=== PATIENT | female | born 1930 | race Caucasian/White ===

== ENCOUNTER 2016-07-20 14:04 | Inpatient (IN) ==
--- NOTE | 2016-07-20 14:29 | Emergency Department Note ---
Disposition Clinical Impression: Atrial fibrillation with RVR Disposition: Admitted As Inpatient Condition: Fair Forms: ED Satisfaction Letter Time of Disposition: 15:24 Arrhythmia/Palpitations HPI - General Chief Complaint: ED Recheck/Abnormal Lab/Rx Stated Complaint: High heart rate hx of a-fib Time Seen by Provider: 07/20/16 14:22 Source: patient Limitations: no limitations Nursing Notes Reviewed: Yes Vital Signs Reviewed: Yes - History of Present Illness HPI Narrative: 86-year-old who states she hasn't felt well for the last couple of days just feels generally weak and was at pain management had a steroid injection in her back and he noticed her heart rate was high so they sent her here the patient does have a history of atrial fibrillation she is not on a blood thinner he has had a Cardizem in the past. 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 Duration: constant Severity: moderate Context: occurred during rest Arrhythmia History: atrial fibrillation Associated symptoms: Reports: denies other symptoms - Related Data Home Medications Medication Instructions Recorded Confirmed Alendronate Sodium/Vitamin D3 1 tab PO HOWARD 02/24/15 04/20/16 [Fosamax Plus D 70 mg-5,600 Iu] Furosemide [Lasix] 40 mg PO BID PRN 02/24/15 04/20/16 Pantoprazole Sodium [Protonix] 40 mg PO QPM 02/24/15 04/20/16 Ergocalciferol (VITAMIN D2) 50,000 unit PO SA 03/13/15 04/20/16 [Drisdol (50,000 Unit)] Diltiazem HCl [Diltiazem ER] 120 mg PO BID 08/06/15 04/20/16 Calcitrate 950 mg PO BID 10/28/15 04/20/16 Propafenone HCl [Propafenone HCl 325 mg PO BID 10/28/15 04/20/16 ER] Previous Rx's Medication Instructions Recorded Apixaban [Eliquis] 2.5 mg PO DAILY #30 tablet 10/31/15 Oxycodone HCl/Acetaminophen 1 each PO Q6H #15 tablet 10/31/15 [Percocet 5-325 mg Tablet] Allergies Allergy/AdvReac Type Severity Reaction Status Date / Time codeine AdvReac Confusion Verified 07/20/16 14:08 Constitutional: Denies: fever, chills, weakness, weight change Eyes: Denies: eye pain, eye discharge, vision change ENT ED: Denies: ear pain, throat pain, dental pain, hearing loss, epistaxis, congestion, dysphagia Cardiovascular: Reports: palpitations. Denies: chest pain, dyspnea on exertion , edema, syncope Respiratory: Denies: cough, dyspnea, wheezes, hemoptysis, stridor Gastrointestinal: Denies: abdominal pain, nausea, vomiting, diarrhea, constipation, hematemesis, melena, hematochezia Genitourinary: Denies: dysuria, frequency, hematuria, discharge Musculoskeletal: Denies: back pain, neck pain, arthralgia, myalgia Integumentary: Denies: rash, abrasion, lesions Neurological: Reports: weakness (Generalized). Denies: headache, numbness, paresthesias, confusion, abnormal gait, vertigo Psychiatric: Denies: anxiety, depression, suicidal thoughts, homicidal thoughts , auditory hallucinations, visual hallucinations Endocrine: Denies: fatigue Hematological/Lymphatic: Denies: easy bleeding, easy bruising Allergic/Immunologic: Denies: facial swelling, urticaria Past Medical History - Past Medical History Medical history: Reports: arthritis, atrial fibrillation, COPD, GERD, hyperlipidemia, hypertension, malignancy, osteoporosis, other Surgical history: Reports: breast surgery, cancer surgery, orthopedic, other, ELYSIA/BSO, other Psychiatric history: Reports: no psych history 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: Reports: 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 - Social History Smoking Status: Never smoker Smokeless Tobacco Status: No Alcohol use: Reports: rarely Drug use: Reports: none Physical Exam - General Limitations: no limitations General appearance: alert, in no apparent distress - Head Head exam: atraumatic, normocephalic, normal inspection - Eye Eye exam: Present: normal appearance, PERRL, EOMI - ENT ENT exam: normal exam, normal oropharynx, mucous membranes moist - Neck Neck exam: Present: normal inspection, full ROM, trachea midline - Chest Chest inspection: Present: normal inspection, symmetric chest wall rise - Respiratory Respiratory exam: Present: normal lung sounds bilaterally - Cardiovascular Cardiovascular exam: Present: tachycardia, irregular rhythm, normal heart sounds - Abdominal Exam Abdominal exam: Present: soft, Non-Tender. Absent: tenderness, distention, guarding, rebound, rigidity - Expanded Lower Extremity Exam Neurovascular/Tendon exam: Absent: motor deficit, sensory deficit, tendon deficit Gait: observed and normal - Back Exam Back exam: Present: normal inspection, full ROM. Absent: tenderness - Neurological Exam Neurological exam: Present: alert, oriented X3. Absent: motor sensory deficit - Psychiatric Psychiatric exam: Present: normal affect, normal mood - Skin Skin exam: Present: warm, dry, intact, normal color Course - Reevaluation(s) Reevaluation #1: Computer system indicates the patient is on a blood thinner Elliquis, however the patient and family states she is not on it she stopped it and has not been taking it. Time: 14:50 Reevaluation #2: Patient was started on amiodarone heart rates come down from 150s to 160s down to 110 to 115. Blood pressure has remained in the mid 100s systolic. She remains asymptomatic. Time: 15:45 - Consultations Consultation #1: Consultation with Dr. Bustamante cardiology he recommends amiodarone drip without a bolus fluid bolus. Time: 14:43 Consultation #2: Discussed with , nicanor. Time: 15:31 Vital Signs Temperature 98.4 F 07/20/16 14:08 Pulse Rate 151 07/20/16 14:08 Respiratory Rate 18 07/20/16 14:08 Blood Pressure 73/48 07/20/16 14:08 O2 Sat by Pulse Oximetry 98 07/20/16 14:08 Temperature 98.4 F 07/20/16 14:08 Pulse Rate 146 07/20/16 15:30 Respiratory Rate 16 07/20/16 15:30 Blood Pressure 116/96 07/20/16 15:30 O2 Sat by Pulse Oximetry 96 07/20/16 15:30 Oxygen Delivery Oxygen Delivery Room Air Arrhythmia/Palpitations - Lab Data Lab results reviewed: Yes I reviewed the patient's lab results. Result diagrams: 07/20/16 14:30 07/20/16 14:30 Lab Results 07/20/16 07/20/16 07/20/16 Range/Units 14:30 14:30 14:30 WBC 8.8 (4.3-11.1) K/mcL RBC 3.41 L (3.82-4.97) M/mcL Hgb 10.9 L (11.5-15.4) g/dL Hct 33.4 L (35.3-44.9) % MCV 97.9 (83.0-100.0) fL MCH 32.0 (28.0-33.3) pg MCHC 32.6 (31.6-35.5) g/dL RDW 14.6 H (11.5-14.5) % Plt Count 238 (140-400) K/mcL MPV 9.8 (9.4-12.4) fL Immature Gran % 0.3 (0-4) % Seg Neutrophils % 62.8 % Lymphocytes % 26.7 % Monocytes % 9.2 % Eosinophils % 0.8 % Basophils % 0.2 % Neutrophils # 5.5 (1.6-8.9) K/mcL Lymphocytes # 2.4 (0.6-4.6) K/mcL Monocytes # 0.8 (0.0-1.3) K/mcL Eosinophils # 0.1 (0.0-0.6) K/mcL Basophils # 0.0 (0.0-0.2) K/mcL PT 11.3 (9.4-12.1) Seconds INR 1.0 APTT 27.5 (26.0-36.0) Seconds Sodium 137 (136-145) mEq/L Potassium 4.0 (3.5-4.5) mEq/L Chloride 103 (98-109) mEq/L Carbon Dioxide 25 (19-29) mEq/L BUN 30 H (7-20) mg/dL Creatinine 2.07 H (0.57-1.11) mg/dL Est GFR ( Amer) 27 L (> 60) Est GFR (Non-Af Amer) 23 L (> 60) BUN/Creatinine Ratio 14 (6-26) Glucose 97 (70-99) mg/dL Calculated Osmolality 290 (280-300) Calcium 9.8 (8.6-10.8) mg/dL Troponin I (0-0.03) ng/mL TSH 1.969 (0.350-4.840) mcIU/mL 07/20/16 Range/Units 14:30 WBC (4.3-11.1) K/mcL RBC (3.82-4.97) M/mcL Hgb (11.5-15.4) g/dL Hct (35.3-44.9) % MCV (83.0-100.0) fL MCH (28.0-33.3) pg MCHC (31.6-35.5) g/dL RDW (11.5-14.5) % Plt Count (140-400) K/mcL MPV (9.4-12.4) fL Immature Gran % (0-4) % Seg Neutrophils % % Lymphocytes % % Monocytes % % Eosinophils % % Basophils % % Neutrophils # (1.6-8.9) K/mcL Lymphocytes # (0.6-4.6) K/mcL Monocytes # (0.0-1.3) K/mcL Eosinophils # (0.0-0.6) K/mcL Basophils # (0.0-0.2) K/mcL PT (9.4-12.1) Seconds INR APTT (26.0-36.0) Seconds Sodium (136-145) mEq/L Potassium (3.5-4.5) mEq/L Chloride (98-109) mEq/L Carbon Dioxide (19-29) mEq/L BUN (7-20) mg/dL Creatinine (0.57-1.11) mg/dL Est GFR ( Amer) (> 60) Est GFR (Non-Af Amer) (> 60) BUN/Creatinine Ratio (6-26) Glucose (70-99) mg/dL Calculated Osmolality (280-300) Calcium (8.6-10.8) mg/dL Troponin I 0.00 (0-0.03) ng/mL TSH (0.350-4.840) mcIU/mL - Radiology Data Radiology results reviewed: Yes I reviewed the patient's radiology results. Chest X-Ray 07/20/16 14:23 IMPRESSION: No acute abnormality. D/ / Gilbert Sethi MD / Gilbert Sethi MD Interpreting Provider: Gilbert Sethi MD - EKG Data EKG attestation: Yes I reviewed and interpreted this EKG. Rate: tachycardia Rhythm: A.Fib [place]/QRS: IVCD Interpretation: no acute changes Critical Care Time Critical Care Time: Yes Total Critical Care Time: 30 Attestation: The high probability of a clinically significant, sudden or life threatening deterioration of the [cardiovascular] system(s) required my full and direct attention, intervention and personal management. The aggregate critical care time was [30] minutes. This time is in addition to time spent performing reported procedures but includes the following: [x] Data Review and interpretation [x] Patient assessment and monitoring of vital signs [x] Documentation [x] Medication orders and management
[2016-07-20 14:36] LABS: Basophils % 0.2 %; Eosinophils # 0.1 K/mcL (0.0-0.6); Eosinophils % 0.8 %; Hematocrit 33.4 % (35.3-44.9); Hemoglobin 10.9 g/dL (11.5-15.4); Immature Granulocytes % 0.3 % (0-4); Lymphocytes # 2.4 K/mcL (0.6-4.6); Lymphocytes % 26.7 %; Mean Corpuscular HGB Conc 32.6 g/dL (31.6-35.5); Mean Corpuscular Volume 97.9 fL (83.0-100.0); Mean Platelet Volume 9.8 fL (9.4-12.4); Monocytes # 0.8 K/mcL (0.0-1.3); Monocytes % 9.2 %; Neutrophils # 5.5 K/mcL (1.6-8.9); Platelet Count 238 K/mcL (140-400); Red Blood Count 3.41 M/mcL (3.82-4.97); Red Cell Distribution Width 14.6 % (11.5-14.5); Segmented Neutrophils % 62.8 %
[2016-07-20 14:41] LABS: Prothrombin Time 11.3 Seconds (9.4-12.1)
[2016-07-20 14:43] LABS: Activated Partial Thrombo Time 27.5 Seconds (26.0-36.0)
[2016-07-20] MEDS ORDERED: Amiodarone Premix 360 MG/200 ML BAG IVC ONE (14:44)
[2016-07-20] MEDS ORDERED: *HR* Heparin 5,000 UNIT/ML VIAL IVP PRN ×2 (14:47)
[2016-07-20] MEDS ORDERED: *HR* Heparin 5,000 UNIT/ML VIAL IVP ONE (14:47)
[2016-07-20 14:49] LABS: Calcium 9.8 mg/dL (8.6-10.8)
[2016-07-20] MEDS ORDERED: Heparin 25,000 UNIT/500 ML D5W 25,000 UNIT/500 ML MLS IVC SCH (15:00)
[2016-07-20 15:10] LABS: Thyroid Stimulating Hormone 1.969 mcIU/mL (0.350-4.840)
[2016-07-20] MEDS ORDERED: Naloxone 0.4 MG/ML INJ IVP PRN (16:51)
[2016-07-20] MEDS ORDERED: Benzonatate 100 MG CAPSULE PO PRN (16:52)
--- NOTE | 2016-07-20 17:02 | Internal Med History&Physical ---
Date of Encounter: 07/20/16 Time of Encounter: 16:30 Assessment and Plan (1) Atrial fibrillation with RVR Current visit: Yes Status: Acute Patient presented with A. fib with RVR and low blood pressure. As such she was started on amiodarone. As per Cardiology recommendations, she was also placed on heparin. We will continue these medications. High risk for complications due to use of intravenous amiodarone and IV heparin. (2) CKD stage G3b/A2, GFR 30-44 and albumin creatinine ratio 30-299 mg/g Current visit: Yes Status: Chronic creatinine is worse than baseline. We will gently hydrate and follow renal function closely. (3) Hypertension Current visit: Yes Status: Chronic well controlled. Continue home medications and monitor blood pressure closely. Qualifiers: Hypertension type: essential hypertension Qualified Code(s): I10 - Essential (primary) hypertension (4) Multilevel degenerative disc disease Current visit: No Status: Chronic Status post spinal epidural steroid injection. Supportive care. Pain control. Internal Medicine - H&P: HPI Chief complaint: Fatigue, tiredness, Admitted From: Emergency Dept Plans for Post Hospital Care: Home History of present illness: Ms. Rodriguez is a 86 year old female patient with history of atrial fibrillation currently not on anticoagulation who presented to the ER after undergoing a spinal epidural steroid injection with rapid A. fib. She does not recollect any abnormality before undergoing the procedure but was found to be tachycardic during the procedure. She also began to have some fatigue and dizziness and was feeling tired soon after. She denies any chest pain. She denies palpitations at this time. She has A. fib and this is paroxysmal and she has had this for about 5 years now. She was previously on anticoagulation with adequate but this was stopped. Denies any fever chills or night sweats. No cough or sputum production. No nausea or vomiting. No syncope Past Med Surg Social Fam HX - Past Medical History Attestation: Yes The following information was validated with the patient. Source: patient, old records reviewed Medical history: arthritis, atrial fibrillation, COPD, GERD, hyperlipidemia, hypertension, malignancy, osteoporosis, other Psychiatric history: no psych history - Past Surgical History Surgical History: breast surgery, cancer surgery, orthopedic, other, ELYSIA/BSO, other - Social History Smoking Status: Never smoker Smokeless Tobacco Status: No Alcohol use: rarely Drug use: none Internal Medicine - H&P: Meds Furosemide [Lasix] 40 mg PO DAILY 02/24/15 [History] Pantoprazole Sodium [Protonix] 40 mg PO QPM 02/24/15 [History] Ergocalciferol (VITAMIN D2) [Drisdol (50,000 Unit)] 50,000 unit PO SA 03/13/15 [ History] Diltiazem HCl [Diltiazem ER] 120 mg PO BID 08/06/15 [History] Propafenone HCl [Propafenone HCl ER] 325 mg PO BID 10/28/15 [History] Alendronate Sodium [Fosamax] 70 mg PO HOWARD 07/20/16 [History] Amoxicillin [Amoxicillin] 875 mg PO BID 07/20/16 [History] Benzonatate [Tessalon] 100 mg PO TID PRN 07/20/16 [History] Calcium Crb,Cit/D3/Min34/Chema [Citracal + Bone Density Tablet] 1 each PO BID [History] Cyclosporine [Restasis Multidose] 1 drop OP BID 07/20/16 [History] Loratadine [Claritin] 10 mg PO DAILY 07/20/16 [History] OxyCODONE Immed Rel [Roxicodone 5 MG] 5 mg PO Q6H 07/20/16 [History] Allergies codeine Adverse Reaction (Verified 07/20/16 14:08) Confusion All Systems PM: A 10-system review of systems was performed and is negative for pertinent findings except as documented above in the HPI. - Constitutional Constitutional: no chills, no fever(s), no night sweats - EENT Eyes: no change in vision, no discharge, no pain, no photophobia Ears: no ear discharge, no ear pain, no tinnitus Nose, mouth and throat: no dysphagia, no nasal discharge, no neck pain, no sore throat - Cardiovascular Cardiovascular ROS IM: lightheadedness, no chest pain, no diaphoresis, no dyspnea, no palpitations, no syncope - Respiratory Respiratory: no cough, no dyspnea, no wheezing, no excessive phlegm production - Gastrointestinal Gastrointestinal: no abdominal pain, no diarrhea, no hematemesis, no hematochezia, no melena, no nausea, no vomiting - Genitourinary Genitourinary: no change in urinary stream, no dysuria, no flank pain, no hematuria - Musculoskeletal Musculoskeletal ROS IM: no numbness, no tingling - Integumentary Integumentary IM: no rash, no unusual bruising - Neurological Neurological ROS: no confusion, no convulsions, no focal weakness, no numbness, no tingling, no tremor(s) - Hematologic/Lymphatic Hematologic/Lymphatic: no easy bruising - Constitutional Vitals: Temp Pulse Resp BP Pulse Ox 98.4 F 97 18 124/77 97 07/20/16 14:08 07/20/16 16:07 07/20/16 16:53 07/20/16 16:53 07/20/16 16:07 General appearance: Present: cooperative, mild distress, A&O X 3, answers questions appropriately - Neck Neck exam general surgery: Present: supple, trachea midline. Absent: lymphadenopathy - Respiratory Respiratory exam: Present: CTAB. Absent: accessory muscle use, rales, rhonchi, wheezes - Cardiovascular Cardiovascular exam: Present: irregular rhythm, +S1, +S2, tachycardia. Absent: diastolic murmur, gallop, rubs, systolic murmur - GI/Abdominal GI/Abdominal exam: Present: normal bowel sounds, soft, no peritoneal signs. Absent: distended, tenderness - Extremities Exam Extremities exam: Present: warm, radial pulses palpable and symetrical. Absent : calf tenderness, cyanotic, pedal edema - Neurological Exam Neurological exam: Present: alert, oriented X3, no focal deficits. Absent: facial droop, speech deficit - Skin Skin exam: Present: dry, intact Internal Med - H&P Results - Labs CBC & Chem 7: 07/20/16 14:30 07/20/16 14:30 - EKG Data -: EKG Interpreted by Myself - EKG Data EKG comments: 07/20/16 17:10 A. fib with RVR - Attending Attestation This document has been at least partially created by [employer] recognition technology by Dr. Forbes. Errors in grammar, wording or other phrases may exist. If errors are found after the documentation is signed, they will be addressed individually in the addendum section of this document when appropriate.
[2016-07-20] MEDS ORDERED: PROPAFENONE HCL 325 MG PO SCH (21:00)
[2016-07-20] MEDS: Amiodarone Premix 360 MG/200 ML BAG IVC SCH (21:37)
[2016-07-20] MEDS: Diltiazem SR (12hr) 60 MG CAPSULE PO SCH (21:46)
[2016-07-21] MEDS: *HR* OxyCODONE Immed Rel 5 MG TABLET PO PRN ×4 (00:32→21:13)
[2016-07-21 03:35] LABS: Basophils % 0.2 %; Hematocrit 28.6 % (35.3-44.9); Hemoglobin 9.5 g/dL (11.5-15.4); Immature Granulocytes % 0.4 % (0-4); Lymphocytes # 1.5 K/mcL (0.6-4.6); Lymphocytes % 27.8 %; Mean Corpuscular HGB Conc 33.2 g/dL (31.6-35.5); Mean Corpuscular Hemoglobin 32.1 pg (28.0-33.3); Mean Corpuscular Volume 96.6 fL (83.0-100.0); Mean Platelet Volume 9.9 fL (9.4-12.4); Monocytes # 0.4 K/mcL (0.0-1.3); Monocytes % 7.5 %; Neutrophils # 3.5 K/mcL (1.6-8.9); Platelet Count 175 K/mcL (140-400); Red Blood Count 2.96 M/mcL (3.82-4.97); Red Cell Distribution Width 14.5 % (11.5-14.5); Segmented Neutrophils % 64.1 %
[2016-07-21 03:44] LABS: Potassium 4.1 mEq/L (3.5-4.5)
[2016-07-21] MEDS: Diltiazem SR (12hr) 60 MG CAPSULE PO SCH ×2 (08:00→21:13)
[2016-07-21] MEDS: Loratadine 10 MG TABLET PO SCH (08:00)
--- NOTE | 2016-07-21 08:10 | Cardiology Consult Note ---
Date of Encounter: 07/21/16 Time of Encounter: 08:10 Assessment and Plan (1) Paroxysmal a-fib Current Visit: No Status: Chronic Appears to be in paroxysmal A Flutter today during my exam. - DC amio drip, start oral amiodarone 400mg BID - Continue cardizem 120mg daily - DC propafenone. - [id number] of 4 - DC heparin drip, restart Eliquis 2.5mg BID. Discussion w patient/family: The assessment and plan as outlined above was discussed with the patient and/or family members who expressed understanding and agreement. All questions were answered. Thank you for involving us in the care of your patient. Please call with any questions. History of Present Illness Consult date: 07/20/16 Requesting physician: Manish Forbes Consult reason: A fib with RVR Chief complaint: weakness, rapid heart rate History of present illness: Ms. Rodriguez is a 86 year old female with a PMHx of paroxysmal Atrial fibrillation , COPD, GERD, HLD, HTN, CKD stage 3 who presented with a chief complaint of weakness for the last couple days. Pt was getting a spinal steroid injection when they noted her to be tachycardic and sent her to be seen in the ED. Pt was found to be in A fib with RVR with a rate of 147 bpm. patient was started on an amiodarone drip as well as heparin drip. Patient denies any shortness of breath or chest pain. Patient states she has been off her Eliquis for approximately one year now. States she thinks her primary care physician Dr. Ordonez has taken her off it. Patient has previously followed with dental technology advisor Dr. Rose/Nabor in [place] but has not seen them in over a year also. Last echocardiogram was done in September 2015 which showed LVEF 65%, mild LV basal septal hypertrophy, moderate LV diastolic dysfunction, severe left atrial dilation, mild dilation of the right atrium, mild mitral regurgitation, moderate pulmonary hypertension, RVSP 51. Past Med Surg Social Fam HX - Past Medical History Medical history: arthritis, atrial fibrillation, GERD, malignancy, osteoporosis , other Psychiatric history: no psych history - Past Surgical History Surgical History: breast surgery, cancer surgery, orthopedic, other, ELYSIA/BSO, other - Social History Smoking Status: Never smoker Smokeless Tobacco Status: No Alcohol use: rarely Drug use: none - Family History Mother Hx Family Neurologic Disorders: (tremors) Medications and Allergies Furosemide [Lasix] 40 mg PO DAILY 02/24/15 [History] Pantoprazole Sodium [Protonix] 40 mg PO QPM 02/24/15 [History] Ergocalciferol (VITAMIN D2) [Drisdol (50,000 Unit)] 50,000 unit PO SA 03/13/15 [ History] Diltiazem HCl [Diltiazem ER] 120 mg PO BID 08/06/15 [History] Propafenone HCl [Propafenone HCl ER] 325 mg PO BID 10/28/15 [History] Alendronate Sodium [Fosamax] 70 mg PO HOWARD 07/20/16 [History] Amoxicillin [Amoxicillin] 875 mg PO BID 07/20/16 [History] Benzonatate [Tessalon] 100 mg PO TID PRN 07/20/16 [History] Calcium Crb,Cit/D3/Min34/Chema [Citracal + Bone Density Tablet] 1 each PO BID [History] Cyclosporine [Restasis Multidose] 1 drop OP BID 07/20/16 [History] Loratadine [Claritin] 10 mg PO DAILY 07/20/16 [History] OxyCODONE Immed Rel [Roxicodone 5 MG] 5 mg PO Q6H 07/20/16 [History] Allergies codeine Adverse Reaction (Verified 07/20/16 14:08) Confusion All Systems Review: A 10-system review of systems was performed and is negative for pertinent findings except as documented above in the HPI. - Constitutional Constitutional: fatigue, weakness - EENT Eyes: no loss of vision Nose, mouth and throat: no dysphagia - Cardiovascular Cardiovascular: irregular heart rhythm, rapid heart rate, no chest pain at rest , no chest pain with exertion, no dyspnea at rest, no dyspnea on exertion, no palpitations - Respiratory Respiratory: no cough, no dyspnea - Gastrointestinal Gastrointestinal: no abdominal pain - Genitourinary Genitourinary: no dysuria - Musculoskeletal Musculoskeletal: back pain (chronic) - Integumentary Integumentary: no erythema, no rash - Neurological Neurological: no abnormal speech, no dizziness, no focal weakness Physical Examination General: Conversant, No Apparent Distress HEENT: Atraumatic, Mucus Membranes Moist Neck: No JVD, Normal carotid pulses Cardiac: No Murmur, Other (rate controlled a flutter) Lungs: Normal Breath Sounds, No Wheeze, Rales, Rhonchi Neuro: Alert and responsive, No focal deficits noted Abdomen: Soft, Non-Tender Skin: No rashes noted on visualized skin Musculoskeletal: No Chest Wall Tenderness Extremities: No Edema, Normal Pulses Results 07/21/16 03:23 07/21/16 03:23 Lab Results 07/20/16 07/20/16 07/21/16 21:29 22:26 03:23 WBC 5.5 Hgb 9.5 L Hct 28.6 L Plt Count 175 APTT 109.4 H D Sodium Potassium Chloride Carbon Dioxide BUN Creatinine Glucose Calcium Troponin I 0.02 07/21/16 07/21/16 07/21/16 03:23 03:23 07:38 WBC Hgb Hct Plt Count APTT 72.4 H Sodium 138 Potassium 4.1 Chloride 105 Carbon Dioxide 25 BUN 30 H Creatinine 1.65 H Glucose 106 H Calcium 9.0 Troponin I 0.01 - Imaging and Cardiology Chest Xray: report reviewed Echo: report reviewed - EKG Interpretation EKG results cardiology: personally reviewed (EKG done at 1440 shows atrial fibrillation with RVR with a rate of [address] depression present in 1, aVL , V3 through V6, normal axis. No ST elevation.) Consult Discharge Plan - Plan Referrals: Héctor Ordonez Jr, MD [Primary Care Provider] -
[2016-07-21] MEDS: Amiodarone Premix 360 MG/200 ML BAG IVC SCH (09:30)
[2016-07-21] MEDS: 0.9 % Sodium Chloride 1,000 ML IVC SCH ×2 (09:50→21:16)
--- NOTE | 2016-07-21 11:23 | Electrocardiograph Report ---
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
[2016-07-21] MEDS: *HR* Amiodarone 200 MG TABLET PO SCH ×2 (12:49→21:13)
[2016-07-21] MEDS: APIXABAN 5 MG TABLET PO SCH ×2 (12:49→21:12)
--- NOTE | 2016-07-21 15:22 | Internal Med Progress Note ---
Date of Encounter: 07/21/16 Time of Encounter: 14:30 - Assessment and plan (1) Atrial fibrillation with RVR Current Visit: Yes Status: Acute Assessment and plan: Recent inferior A. fib and flutter. Rate controlled currently while she was receiving amiodarone IV. Has now been changed to oral amiodarone. Propafenone has been discontinued. High chads vasc score. On IV heparin. Now transitioned to Eliquis. Moderate risk for complications. If patient's heart rate remains controlled tomorrow without any complications, she is likely to be discharged home. (2) CKD stage G3b/A2, GFR 30-44 and albumin creatinine ratio 30-299 mg/g Current Visit: Yes Status: Chronic Assessment and plan: creatinine 1.65 today. At baseline. (3) Hypertension Current Visit: Yes Status: Chronic Assessment and plan: Blood pressure is well controlled. Qualifiers: Hypertension type: essential hypertension Qualified Code(s): I10 - Essential (primary) hypertension (4) Multilevel degenerative disc disease Current Visit: No Status: Chronic Assessment and plan: Continue supportive care. Pain well controlled. - Subjective Interval history: Patient is feeling much better today. No lightheadedness or dizziness. No palpitations. Feels a little bit tired. No nausea or vomiting. No fever or chills. - Constitutional Vitals: Temp Pulse Resp BP Pulse Ox 98.2 F 53 16 99/67 96 07/21/16 14:45 07/21/16 14:45 07/21/16 14:45 07/21/16 14:45 07/21/16 14:45 General appearance: Present: cooperative, A&O X 3, no acute distress, answers questions appropriately - Neck Neck exam general surgery: Present: supple, trachea midline. Absent: lymphadenopathy - Respiratory Respiratory exam: Present: CTAB. Absent: accessory muscle use, rales, rhonchi, wheezes - Cardiovascular Cardiovascular exam: Present: irregular rhythm, +S1, +S2. Absent: diastolic murmur, gallop, rubs, systolic murmur - GI/Abdominal GI/Abdominal exam: Present: normal bowel sounds, soft, no peritoneal signs. Absent: distended, tenderness - Neurological Exam Neurological exam: Present: alert, oriented X3, no focal deficits. Absent: facial droop, speech deficit - Skin Skin exam: Present: dry, intact Internal Medicine: Result - Labs CBC & Chem 7: 07/21/16 03:23 07/21/16 03:23 - ABG Interpretation ABG results: PT/INR, D-dimer PT 11.3 Seconds (9.4-12.1) 07/20/16 14:30 Consult Discharge Plan - Plan Referrals: Héctor Ordonez Jr, MD [Primary Care Provider] - - Attending Attestation This document has been at least partially created by [employer] recognition technology by Dr. Forbes. Errors in grammar, wording or other phrases may exist. If errors are found after the documentation is signed, they will be addressed individually in the addendum section of this document when appropriate.
[2016-07-21] MEDS ORDERED: APIXABAN 5 MG TABLET PO SCH (21:00)
[2016-07-21] MEDS ORDERED: *HR* Amiodarone 200 MG TABLET PO SCH (21:00)
[2016-07-21] MEDS ORDERED: (Propafenone Hcl [Propafenone Hcl Er] 325 MG) PO SCH (21:00)
[2016-07-22] MEDS: Diltiazem SR (12hr) 60 MG CAPSULE PO SCH (08:00)
[2016-07-22] MEDS: APIXABAN 5 MG TABLET PO SCH (08:01)
[2016-07-22] MEDS: Loratadine 10 MG TABLET PO SCH (08:01)
[2016-07-22 08:04] VITALS: BP 82/63
[2016-07-22] MEDS ORDERED: *HR* Amiodarone 200 MG TABLET PO SCH (09:00)
--- NOTE | 2016-07-22 09:53 | Discharge Summary ---
Date of Encounter: 07/22/16 Time of Encounter: 09:35 - Discharge Diagnosis (1) Atrial fibrillation with RVR Priority: Primary Status: Acute (2) CKD stage G3b/A2, GFR 30-44 and albumin creatinine ratio 30-299 mg/g Priority: Secondary Status: Chronic (3) Hypertension Priority: Secondary Status: Chronic Qualifiers: Hypertension type: essential hypertension Qualified Code(s): I10 - Essential (primary) hypertension (4) Multilevel degenerative disc disease Priority: Secondary Status: Chronic - Discharge Medications Prescriptions: Amiodarone [Cordarone] 200 mg PO BID #40 tablet Apixaban [Eliquis] 2.5 mg PO BID #60 tablet Home Medications: Furosemide [Lasix] 40 mg PO DAILY 02/24/15 [History] Pantoprazole Sodium [Protonix] 40 mg PO QPM 02/24/15 [History] Ergocalciferol (VITAMIN D2) [Drisdol (50,000 Unit)] 50,000 unit PO SA 03/13/15 [ History] Diltiazem HCl [Diltiazem ER] 120 mg PO BID 08/06/15 [History] Alendronate Sodium [Fosamax] 70 mg PO HOWARD 07/20/16 [History] Amoxicillin 875 mg PO BID 07/20/16 [History] Benzonatate [Tessalon] 100 mg PO TID PRN 07/20/16 [History] Calcium Crb,Cit/D3/Min34/Chema [Citracal + Bone Density Tablet] 1 each PO BID [History] Cyclosporine [Restasis Multidose] 1 drop OP BID 07/20/16 [History] Loratadine [Claritin] 10 mg PO DAILY 07/20/16 [History] OxyCODONE Immed Rel [Roxicodone 5 MG] 5 mg PO Q6H 07/20/16 [History] Amiodarone [Cordarone] 200 mg PO BID #40 tablet 07/22/16 [Rx] Apixaban [Eliquis] 2.5 mg PO BID #60 tablet 07/22/16 [Rx] Allergies/Adverse Reactions: Allergies codeine Adverse Reaction (Verified 07/20/16 14:08) Confusion Date of admission: 07/21/16 10:25 Primary care physician: Héctor Ordonez Jr, MD Consults: 07/20/16 17:14 Consult to Cardiology [CONS] Routine Comment: Consulting Provider: Sanna Munoz Reason for Consult: ED physician spoke with Dr. Bustamante regarding AFIb with RVR Call Completed: Yes 07/20/16 20:04 Consult to Nutrition [CONS] Routine Comment: Consulting Provider: NUTRITION Reason for Dietary Consult: MST Score Discharging clinician: Manish Forbes Anticipated date of discharge: 07/22/16 - Patient Status Disposition: Home, Self-Care Condition: Good Functional capacity at discharge: independent ambulation Overall status at discharge: patient is back to baseline - Discharge Instructions Instructions: Atrial Fibrillation (DC) Follow Up With: Héctor Ordonez Jr, MD [Primary Care Provider] - Additional Instructions: Follow-up with cardiology in 1 week - Diet and Activity Activity: increase activity as tolerated Diet: low fat, low cholesterol, low salt diet Hospital course: Ms. Rodriguez is a 86 year old female patient with history of atrial fibrillation who was admitted here with atrial fibrillation and rapid ventricular response along with low blood pressure. She was evaluated in the ER and was started on the amiodarone drip to control her heart rate. She was then monitored in our stepdown unit while she was receiving IV amiodarone. Cardiology evaluated her and recommended transitioning the patient to oral amiodarone and stopping propafenone which she was taking previously. She was monitored overnight while receiving oral amiodarone and her heart rate has remained well controlled although still in A. fib. She is feeling much better now and is stable for discharge. She will continue taking Medrol 20 mg twice daily for 1 week and then transition to 200 mg by mouth daily. She will follow up with cardiology for further management of her atrial fibrillation. She has also been started on anticoagulation with Eliquis. - Time Spent with Patient Total time spent providing and/or coordinating discharge services: Less than 30 minutes (25 min) - Constitutional Vitals: Temp Pulse Resp BP Pulse Ox 98.0 F 70 20 82/63 97 07/22/16 08:09 07/22/16 07:58 07/22/16 07:58 07/22/16 07:58 07/22/16 07:58 General appearance: Present: cooperative, A&O X 3, no acute distress, answers questions appropriately - Respiratory Respiratory exam: Present: CTAB. Absent: accessory muscle use, rales, rhonchi, wheezes - Cardiovascular Cardiovascular exam: Present: irregular rhythm, +S1, +S2. Absent: diastolic murmur, gallop, rubs, systolic murmur - GI/Abdominal GI/Abdominal exam: Present: normal bowel sounds, soft, no peritoneal signs. Absent: distended, tenderness - Extremities Exam Extremities exam: Present: warm, radial pulses palpable and symetrical. Absent : calf tenderness, cyanotic, pedal edema - Attending Attestation This document has been at least partially created by [employer] recognition technology by Dr. Forbes. Errors in grammar, wording or other phrases may exist. If errors are found after the documentation is signed, they will be addressed individually in the addendum section of this document when appropriate.
== END 2016-07-22 12:27 | disposition home or self-care (01) | DRG 310 ==
LOC: EMEROO 14:04 → 2ANU 14:04 → SUATTDRO 16:28 → 2ANU 17:22 → 2NNU 18:12
PROVIDERS: ADMIT Internal Medicine; ATTEND Internal Medicine